=== PATIENT | female | born 1960 | race Caucasian/White ===

== ENCOUNTER 2022-06-23 11:24 | Emergency (ER) | payer OTHER, MEDICAID, SELFPAY ==
[2022-06-23 11:27] VITALS: BP 125/60; PULSE 64; RESP 18; TEMP 36.4; O2SAT 95
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
== END 2022-06-23 12:17 | disposition home or self-care (01) ==
PROVIDERS: Emergency Provider Physician Assistant
DX: S80.11XA Contusion of right lower leg, initial encounter (principal); V89.2XXA Person injured in unspecified motor-vehicle accident, traffic, initial encounter
CPT/HCPCS: 99282